=== PATIENT | female | born 1985 | race African-American/Black ===

== ENCOUNTER 2023-12-22 10:06 | Emergency (ER) | payer OTHER, SELFPAY ==
[2023-12-22 10:08] VITALS: BP 153/92
[2023-12-22 10:24] VITALS: BMI 42.1
[2023-12-22 12:55] VITALS: BP 122/78
[2023-12-22 12:59] LABS: Urine Albumin Negative (Neg - Trace); Urine Bilirubin Negative (Negative); Urine Character Clear (Clear); Urine Color Yellow; Urine Glucose Negative (Negative); Urine Ketone Negative (Negative); Urine Leukocyte Negative (Negative); Urine Nitrite Negative (Negative); Urine Occult Blood Negative (Negative); Urine Urobilinogen Negative (Neg - 1+)
[2023-12-22 13:03] LABS: % Basophils 0.8 % (0-2); % Eosinophils 1.2 % (0-6); % Immature Granulocytes 0.2 % (0-0.5); % Monocytes 6.4 % (1.7-9.3); % Neutrophils 59.4 % (42.2-75.2); Absolute Basophils 0.1 10^3/uL (0-0.2); Absolute Eosinophils 0.1 10^3/uL (0-0.7); Absolute Lymphocytes 1.9 10^3/uL (1.2-3.4); Absolute Monocytes 0.4 10^3/uL (0.1-0.6); Absolute Neutrophils 3.6 10^3/uL (1.4-6.5); Hematocrit 34.6 % (37.0-47.0); Hemoglobin 10.6 g/dL (12.0-16.0); Mean Corp Hgb Conc. 30.6 g/dL (33.0-37.0); Mean Corpuscular Hgb 18.6 pg (27.0-31.0); Mean Corpuscular Volume 60.8 fL (81.0-99.0); Mean Platelet Volume 9.6 fL (7.4-10.4); Nucleated Red Blood Cells % 0 %; Platelet Count 420 10^3/uL (130-400); Red Blood Cell Count 5.69 10^6/uL (4.20-5.40); Red Cell Dist. Width 19.8 % (11.5-14.5); White Blood Cell Count 6.1 10^3/uL (4.8-10.8)
[2023-12-22 13:09] LABS: HCG, Serum Qualitative Screen Negative
[2023-12-22 13:18] LABS: ALT (SGPT) 17 U/L (0-35); AST (SGOT) 26 U/L (14-36); Albumin 4.4 g/dl (3.5-5.0); Alkaline Phosphatase 86 U/L (38-126); Blood Urea Nitrogen 8 mg/dl (7-17); Calcium 9.5 mg/dl (8.4-10.2); Carbon Dioxide 26 mmol/L (22-30); Chloride 106 mmol/L (98-107); Estimated Creatinine Clearance > 125 ml/min; Glucose 82 mg/dl (70-99); Potassium 4.1 mmol/L (3.5-5.1); Sodium 139 mmol/L (135-145); Total Bilirubin 0.4 mg/dl (0.2-1.3); Total Protein 7.5 g/dl (6.3-8.2); eGFR > 60.00
--- NOTE | 2023-12-22 13:35 | ED.GENMED ---
History of Present Illness
General
Chief Complaint: Anxiety
Source: patient
Exam Limitations: none
Time Seen by Provider: 12/22/23 10:22
Nursing documentation reviewed up to this point in time: agreed with
Travel History
Have you had any contact with someone who has COVID-19?: No
Do you have any symptoms of coronavirus? Fever > 100 degrees, chills, cough, shortness of breath, sore throat, loss of taste or smell, muscle aches, or headache?: No
History of Present Illness
History of Present Illness:
38 yo F with ho anxiety/depression, pre diabetic
here with 2 weeks of vague symptoms 'doesn't feel right', dry mouth despite oral hydration, aniety, poor appetite
she had f/u with her psychatrits yesterday, no change to her meds (seroquel)
psychiatrist wasn't vincent eif it was anxiety or something else
pt has not had any fever, chills, sore throat, vomiting, chest pain, shortness of breath
She says sometimes when she swallows that she has to concentrate on swallowing because it seems like it is difficult. But she does not regurgitate and she does not have trouble eating her food and does not have to cut it smaller. She has no
problems with her voice. She is not having any neck swelling. Patient did notice about 6 months ago that she has a lump in her upper abdomen deep underneath the tissues. There is no skin changes there. She has previously had abdominal wall
abscess couple years ago that was I indeed. She was not sure what this upper abdominal lump is. Patient says it does not hurt at all. She does have a family doctor but has not called the doctor for follow-up regarding all the symptoms. She just
decided it was time to get checked out she is not suicidal
Past History
Past History
ED Past Medical History: Psychiatric (a/d) and Other (Borderline diabetes, overweight, iron deficiency anemia)
ED Past Surgical History: None
Social History
Tobacco: Smoker
Alcohol: Former
Drug: None
Personal: Single
Living: alone
Employment: Employed
Review of Systems
Review of Systems
Allergies reviewed?: Yes
All Other Systems: Not applicable
Phy Exam
Physical Exam
Physical Exam:
GENERAL: Alert , in no apparent distress, does not appear anxious
EYE: pupils equal and reactive
NECK: Supple, no thyromegaly appreciated
ENT: o/p clr, mmm. Normal posterior pharynx, normal phonation, tolerating secretions,
CARDIAC: Regular rate and rhythm .
LUNGS: Clear breath sounds bilaterally, no acute respiratory distress, no wheezes/rales/rhonchi
ABDOMEN: Soft, without focal tenderness, no r/g, no cvat, normal bowel sounds
Upper abdominal area above her umbilicus there is a palpable deep lump which is nontender in the midline approximately 4 x 3 cm, there is no skin changes
NEUROLOGICAL: Alert and oriented, no focal neuro deficits
SKIN: Warm and dry, skin intact.
MUSCULOSKELETAL: No edema, well perfused. neg priscilla's sign
PSYCH: Normal and appropriate interaction.
Course
Orders/Labs/Results
Orders:
Orders
12/22/23 11:39
Test Result ONCE
US Abdomen Complete/Upper Urgent
Comment:
Reason For Exam: upper abd lump, poor appetite
12/22/23 12:49
Complete Blood Count/With Diff Urgent
Comprehensive Metabolic Panel Urgent
HCG, Serum Qualitative Screen Urgent
TSH Reflex To Free T4 Urgent
Urinalysis Reflex To Culture Urgent
Date Specimen was Collected: 12/22/23
Time Specimen was Collected: 12:23
12/22/23 13:45
CT Abd/Pel (IV only)-DH only Urgent
Comment:
Reason For Exam: upper abdominal wall mass, fatigue, lack of appeti
Abnormal Lab Results
12/22/23
12:49
RBC 5.69 H 10^6/uL
(4.20-5.40)
Hgb 10.6 L g/dL
(12.0-16.0)
Hct 34.6 L %
(37.0-47.0)
MCV 60.8 L fL
(81.0-99.0)
MCH 18.6 L pg
(27.0-31.0)
MCHC 30.6 L g/dL
(33.0-37.0)
RDW 19.8 H %
(11.5-14.5)
Plt Count 420 H 10^3/uL
(130-400)
12/22/23 12:49
12/22/23 12:49
Vital Signs
Initial and Last Documented VS:
Initial Vital Signs
Temp Pulse Resp BP Pulse Ox
98.8 F 96 16 153/92 98
12/22/23 10:08 12/22/23 10:08 12/22/23 10:08 12/22/23 10:08 12/22/23 10:08
Last Documented Vital Signs
Temp Pulse Resp BP Pulse Ox
98.8 F 60 16 113/72 100
12/22/23 10:08 12/22/23 15:40 12/22/23 15:40 12/22/23 15:40 12/22/23 15:40
MDM/Problems Addressed
Differential Diagnosis Includes:
Anxiety,diabetes, thyroid issues, infection, uti,
MDM/Problems Addressed:
38 y/o F
h/o anxiety/dpression
here with 2 weeks of some vague symptmos
mild fatigue, lack of appetite, anxiety, dry mouth, urinating a ot
has been told she is prediabtic
also incidentally noticed that she had a lump which is nonpainful in the upper abdomen for the last 6 months. She did not talk to her doctor about it. She is not sure if it is related. Patient has not had any change to her psychiatric
medications. She is had a consultation with her psychiatrist who was not sure if any of the symptoms were related to her anxiety but thought she should get evaluated for any medical concerns. On exam the patient does have a palpable nontender
large upper abdominal mass which seems to be deeper than just the subcutaneous tissue without any overlying skin changes. Otherwise her exam is unremarkable. Her blood work showed she was mildly anemic with a hemoglobin of 10 but otherwise her
chemistry was normal thyroid normal urine negative hCG negative. I did an ultrasound of her upper abdominal area and it did reveal 13 x 6 cm mass which could be a lipoma versus something else. I discussed case with ED attending recommended we do a
CT scan with IV contrast. The mass was not identified on the CT scan which is reassuring. Patient was encouraged to further follow-up with her family doctor as an MRI would be more sensitive to differentiate this but there does not look to be any
emergent concerns. DC home
*Critical Care Note
Total Time (30-74mins, 75-104mins- exclusive of procedures): Not Applicable
ED Attending Note
-
Portions of this chart may have been created with voice recognition software.� Occasional wrong word or��sound alike� substitutions may have occurred due to the inherent limitations of voice recognition software.
Discharge Plan
Departure
Patient Disposition: Home (Routine Discharge)
Date of Disposition: 12/22/23
Time of Disposition: 15:28
Patient with high blood pressure during this ER visit?: No
Condition: Fair
Covid-19: Not Applicable
Discharge Problem:
Anxiety
Instructions: Anxiety, Adult (DC)
Prescriptions:
No Action
clindamycin HCl 300 mg capsule
300 mg PO TID Qty: 30 0RF
Referrals:
David Rogel MD [Family Provider] - Follow up in 2-3 days
Activity Restrictions/Additional Instructions:
You are not sure the cause of your symptoms. You were mildly anemic but otherwise there were no otherwise concerning lab abnormalities. Your ultrasound did show what looked to be an abnormal mass in measuring 13 x 6 cm in your abdominal area. A
CAT scan did not differentiate this any further, it could be a lipoma which is a benign fatty tumor. You should follow-up with your family doctor. They may end up ordering an MRI just for completeness sake. Follow-up with your psychiatrist for
other symptoms. Return as needed
Interventions
Interventions:
*Risk Screen - Suicide Last Done: 12/22/23 10:08
*General Assessment Last Done: 12/22/23 10:08
*Neglect/Abuse Screening Last Done: 12/22/23 10:08
ED- Fall Risk Assessment Last Done: 12/22/23 10:27
*ED COVID-19 Vaccine History Last Done: 12/22/23 10:25
*Nursing Disposition Last Done: 12/22/23 15:40
ED-Psychological Assessment Last Done: 12/22/23 10:25
Discharge Date and Time
Discharge Date/Time: 12/22/23 15:41
[2023-12-22 13:47] LABS: TSH Reflex To Free T4 1.17 uIU/ml (0.47-4.68)
[2023-12-22 15:30] VITALS: BP 113/72
--- NOTE | 2023-12-22 15:39 | EDRN ---
Reviewed discharge instructions with patient. Verbalized understanding. Ambulated with steady gait to the lobby.
[2023-12-22 15:40] VITALS: BP 113/72
== END 2023-12-22 15:41 | disposition home or self-care (01) ==
LOC: EMR 10:06
PROVIDERS: Physician Assistant; EMERGENCY PHYSICIAN Student in an Organized Health Care Education/Training Program; FAMILY PHYSICIAN Internal Medicine
DX: F41.9 Anxiety disorder, unspecified (principal); F32.A Depression, unspecified; R73.03 Prediabetes; R63.0 Anorexia; R68.2 Dry mouth, unspecified; R19.00 Intra-abdominal and pelvic swelling, mass and lump, unspecified site; D50.9 Iron deficiency anemia, unspecified; F17.200 Nicotine dependence, unspecified, uncomplicated; Z91.013 Allergy to seafood
CPT/HCPCS: 99285; 74177; 76700; 80053; 81003; 84443; 84703; 85025; Q9967

== ENCOUNTER 2025-05-20 09:49 | Emergency (ER) | payer OTHER, SELFPAY ==
[2025-05-20 10:05] VITALS: BP 149/82
[2025-05-20 10:17] LABS: Hematocrit 34.3 % (37.0-47.0); Hemoglobin 10.6 g/dL (12.0-16.0); Mean Corp Hgb Conc. 30.9 g/dL (33.0-37.0); Mean Corpuscular Volume 62.8 fL (81.0-99.0); Nucleated Red Blood Cells % 0 %; Platelet Count 348 10^3/uL (130-400); Red Cell Dist. Width 20.3 % (11.5-14.5)
[2025-05-20 10:29] LABS: HCG, Serum Qualitative Screen Negative
[2025-05-20 10:41] LABS: ALT (SGPT) 21 U/L (0-35); AST (SGOT) 22 U/L (14-36); Albumin 4.5 g/dl (3.5-5.0); Alkaline Phosphatase 71 U/L (38-126); Blood Urea Nitrogen 7 mg/dl (7-17); Calcium 9.7 mg/dl (8.4-10.2); Carbon Dioxide 23 mmol/L (22-30); Chloride 108 mmol/L (98-107); Glucose 141 mg/dl (70-99); Lipase 69 U/L (23-300); Potassium 4.2 mmol/L (3.5-5.1); Sodium 139 mmol/L (135-145); Total Protein 7.6 g/dl (6.3-8.2); eGFR > 60.00
[2025-05-20 11:48] VITALS: BMI 42.8
--- NOTE | 2025-05-20 12:08 | ED.GENMED ---
History of Present Illness
<Samuel Ortiz MD, Resident - Last Filed: 05/20/25 12:40>
General
Chief Complaint: Abdominal Symptoms
Source: patient
Exam Limitations: none
Time Seen by Provider: 05/20/25 11:18
History of Present Illness
History of Present Illness:
This is a 40-year-old female with known past medical history of anxiety/depression on multiple medications including Zoloft, Ativan, Seroquel and recently prescribed but not started Wellbutrin presenting to the emergency department with complaints
of not feeling well. She states that when she woke up yesterday she was not feeling well could not pinpoint to single sign or symptom, she decided to go to work however she had to leave early she came home and rested. She was able to sleep last
night she went to work today however she left the work early again because she was not feeling well. Denies fever or chills, denies headache, denies abdominal pain, denies cough denies trouble breathing, denies numbness or tingling denies any
nausea or vomiting. Mother inquiring her bowel habits she informed me that usually she goes every day however her last bowel movement was on Monday and she is very constipated but denies any vomiting or abdominal symptoms.
Past History
<Samuel Ortiz MD, Resident - Last Filed: 05/20/25 12:40>
Past History
ED Past Medical History: Psychiatric (a/d) and Other (Borderline diabetes, overweight, iron deficiency anemia)
ED Past Surgical History: None
Patient has exhibited threatening behavior?: No
Social History
Tobacco: Smoker (PPD since she was 20)
Alcohol: Former
Drug: None
Personal: Partner
Living: with family
Employment: Employed
Family History
Family History: Other (Noncontributory)
Review of Systems
<Samuel Ortiz MD, Resident - Last Filed: 05/20/25 12:40>
Review of Systems
Constitutional: Denies fever, fatigue or chills
EENT: Denies sore throat or runny nose
Respiratory: Denies cough or trouble breathing
Cardiac: Denies chest pain or palpitations
ABD/GI: Reports constipated; Denies abdominal pain, nausea or vomiting
: Denies dysuria or frequency
Musculoskeletal: Denies joint pain or joint swelling
Skin: Denies itching
Neurological: Denies dizzy or weakness
Hematologic/Lymphatic: Denies bleeding
Psychiatric: Reports depression and anxiety; Denies suicidal or hallucinations
Phy Exam
<Samuel Ortiz MD, Resident - Last Filed: 05/20/25 12:40>
General Physical Exam
General Presentation: no apparent distress
General age: appears stated age
General Skin: warm
General Habitus: normal
General Mental: alert
General Hydration: appears well hydrated
Cardiovascular Exam
Cardiovascular Exam: regular rate/rhythm and no murmur
Pulmonary Exam
Pulmonary Exam: lungs clear, no crackles and no cough
Gastrointestinal Exam
Gastrointestinal Exam: normal bowel sounds, non tender, soft, no pulsatile mass and non distended
Neurological Exam
Neurological Exam: alert, oriented x3, no motor deficits and no sensory deficits
Musculoskeletal Exam
Musculoskeletal Exam: full ROM
Course
<Samuel Ortiz MD, Resident - Last Filed: 05/20/25 12:40>
Orders/Labs/Results
Orders:
Orders
05/20/25 10:08
Test Result ONCE
Abdominal Series [CR Obstruct Series W/pa Chest] Urgent
Comment:
Reason For Exam: constipation since monday
05/20/25 10:12
Complete Blood Count/With Diff Urgent
Comprehensive Metabolic Panel Urgent
Ferritin Urgent
Comment: ADD ON
HCG, Serum Qualitative Screen Urgent
Iron Urgent
Comment: ADD ON
Lipase Urgent
Lyme Progressive Urgent
Comment: ADD ON
Monotest Urgent
Comment: ADD ON
TSH Reflex To Free T4 Urgent
Comment: ADD ON
Total Iron Binding Urgent
Comment: ADD ON
05/20/25 11:35
Add On- LAB Urgent
Tests Added?: iron, ferritin, TIBC
05/20/25 12:14
Add On- LAB Urgent
Tests Added?: TSH, to reflex Free T4, monospot, lyme progressive
Abnormal Lab Results
05/20/25
10:12
RBC 5.46 H 10^6/uL
(4.20-5.40)
Hgb 10.6 L g/dL
(12.0-16.0)
Hct 34.3 L %
(37.0-47.0)
MCV 62.8 L fL
(81.0-99.0)
MCH 19.4 L pg
(27.0-31.0)
MCHC 30.9 L g/dL
(33.0-37.0)
RDW 20.3 H %
(11.5-14.5)
Chloride 108 H mmol/L
(98-107)
Glucose 141 H mg/dl
(70-99)
% Saturation 10 L %
(20-50)
05/20/25 10:12
05/20/25 10:12
Vital Signs
Initial and Last Documented VS:
Initial Vital Signs
Temp Pulse Resp BP Pulse Ox
98.2 F 86 17 149/82 99
05/20/25 10:05 05/20/25 10:05 05/20/25 10:05 05/20/25 10:05 05/20/25 10:05
Last Documented Vital Signs
Temp Pulse Resp BP Pulse Ox
98.2 F 86 17 149/82 99
05/20/25 10:05 05/20/25 10:05 05/20/25 10:05 05/20/25 10:05 05/20/25 12:15
<Jeison Foley MD - Last Filed: 05/20/25 13:27>
Orders/Labs/Results
Orders:
Orders
05/20/25 10:08
Test Result ONCE
Abdominal Series [CR Obstruct Series W/pa Chest] Urgent
Comment:
Reason For Exam: constipation since monday
05/20/25 10:12
Complete Blood Count/With Diff Urgent
Comprehensive Metabolic Panel Urgent
Ferritin Urgent
Comment: ADD ON
HCG, Serum Qualitative Screen Urgent
Iron Urgent
Comment: ADD ON
Lipase Urgent
Lyme Progressive Urgent
Comment: ADD ON
Monotest Urgent
Comment: ADD ON
TSH Reflex To Free T4 Urgent
Comment: ADD ON
Total Iron Binding Urgent
Comment: ADD ON
05/20/25 11:35
Add On- LAB Urgent
Tests Added?: iron, ferritin, TIBC
05/20/25 12:14
Add On- LAB Urgent
Tests Added?: TSH, to reflex Free T4, monospot, lyme progressive
Abnormal Lab Results
05/20/25
10:12
RBC 5.46 H 10^6/uL
(4.20-5.40)
Hgb 10.6 L g/dL
(12.0-16.0)
Hct 34.3 L %
(37.0-47.0)
MCV 62.8 L fL
(81.0-99.0)
MCH 19.4 L pg
(27.0-31.0)
MCHC 30.9 L g/dL
(33.0-37.0)
RDW 20.3 H %
(11.5-14.5)
Chloride 108 H mmol/L
(98-107)
Glucose 141 H mg/dl
(70-99)
% Saturation 10 L %
(20-50)
05/20/25 10:12
05/20/25 10:12
Vital Signs
Initial and Last Documented VS:
Initial Vital Signs
Temp Pulse Resp BP Pulse Ox
98.2 F 86 17 149/82 99
05/20/25 10:05 05/20/25 10:05/20/25 10:05/20/25 10:05/20/25 10:05
Last Documented Vital Signs
Temp Pulse Resp BP Pulse Ox
98.2 F 86 17 149/82 99
05/20/25 10:05 05/20/25 10:05 05/20/25 10:05 05/20/25 10:05 05/20/25 12:15
<Samuel Ortiz MD, Resident - Last Filed: 05/20/25 12:40>
MDM/Problems Addressed
Differential Diagnosis Includes:
Iron def anemia vs thyroid disease vs mono vs lyme
MDM/Problems Addressed:
CBC with hemoglobin of 10.6 and MCV of 62.8. Points towards microcytic anemia likely iron deficiency.
CMP benign with mild elevated blood glucose. Lipase within normal limits. hCG negative.
Iron studies with normal total iron and total iron-binding capacity. Percentage saturation on the lower side 10.
Chest abdominal x-ray without any perforation or bowel dilation
Recommended to utilize miralax daily, keep hydrated, rest eat healthy diet.
will call the patient with results if anything abnormal in labs. Lyme, mono, TSH pending at the time of discharge.
Shared decision with the patient for discharge and follow-up with family doctor. Advised to return to the emergency room if you develop any new or worsening of the current symptoms. She voices understanding and agree with the plan. Work note has
been provided to the patient and her partner.
<Samuel Ortiz MD, Resident - Last Filed: 05/20/25 12:40>
*Pulse Oximetry
SaO2: 99
Oxygen Mode of Delivery: Room air
Patient hypoxic: no
*Critical Care Note
Total Time (30-74mins, 75-104mins- exclusive of procedures): Not Applicable
ED Attending Note
<Samuel Ortiz MD, Resident - Last Filed: 05/20/25 12:40>
-
Portions of this chart may have been created with voice recognition software.� Occasional wrong word or��sound alike� substitutions may have occurred due to the inherent limitations of voice recognition software.
<Jeison Foley MD - Last Filed: 05/20/25 13:27>
ED Attending Note
Patient seen and examined by attending physician: Yes
ED Attending Note:
Patient with history of anxiety disorder and depression, presents to ED secondary to intermittent episodes of fatigue and generalized weakness over the past 2 days. Patient went to work yesterday with aforementioned symptoms but had to leave work
early due to her symptoms. Today, as well, patient experienced continual symptoms at work, causing her to leave for an evaluation. Denies fever or chills. Denies coughing. Denies sore throat. Denies headache. Denies neck pain. Denies nausea,
vomiting, or diarrhea. Denies rash. Denies recent travel. Denies recent illness. Denies recent change in medications or diet. Denies sick contact. Patient is concerned that she may be experiencing symptoms secondary to low iron level or
dehydration.
Physical Exam
General: no apparent distress, not acutely ill. afebrile.
Head: nc/at. eomi
Neck: supple. no meningeal signs
Heart: s1/s2 regular rate and rhythm
Lungs: no acute respiratory distress. clear bilaterally
Abdomen: normal bowel sounds. not tender.
Neuro: alert and oriented x 3. no focal neurological deficits
Skin: no rash
Psychiatric: well kept. interactive and cooperative
Patient with an unremarkable workup in ED, including blood work and x-ray. Patient otherwise remains afebrile, hemodynamically stable, and without any gross evidence of dehydration.
Lyme titer, Monospot, TSH, iron studies pending at discharge. Patient advised to follow-up with PCP for reevaluation. Advised dietary modification, increased fluid intake, along with stool softener/laxative.
Discharge Plan
Departure
Patient Disposition: Home (Routine Discharge)
Date of Disposition: 05/20/25
Time of Disposition: 12:32
Patient with high blood pressure during this ER visit?: Yes
Condition: Good
Discharge Problem:
Anemia
Instructions: Anemia in adults, possibly from low iron - ED discharge instructions
Prescriptions:
No Action
clindamycin HCl 300 mg capsule
300 mg PO TID Qty: 30 0RF
Referrals:
Kellie Guillaume CRNP [Family Provider] - Follow up in 1 week
Stand Alone Forms: Return to Work
Activity Restrictions/Additional Instructions:
You were seen in the [facility] the emergency department with concerns of not feeling well. During your stay you had blood work including complete blood count which shows hemoglobin of 10.6 and MCV of 62.8. Complete
metabolic panel which shows blood glucose of 141 otherwise benign. Panel shows total iron and total iron binding capacity within normal limits. Iron saturation slightly low. Recommend use of [id number] iron tablets. Lipase was normal hCG
was negative.
Chest/abdominal x-ray without any dilated bowels or perforation. We advise you to use [id number] MiraLAX daily, maintain hydration and eat healthy diet. Work note has been provided with discharge along with further instructions.
At the time of the discharge TSH, Lyme and mono screen was pending. We will call you if there is any abnormal results.
Interventions
Interventions:
*Risk Screen - Suicide Last Done: 05/20/25 10:07
*General Assessment Last Done: 05/20/25 10:07
*Neglect/Abuse Screening Last Done: 05/20/25 10:07
*ED COVID-19 Vaccine History Last Done: 05/20/25 10:07
HY-[id number]-[id number] Assessment Last Done: 05/20/25 11:49
Discharge Date and Time
Print Language: POLISH
[2025-05-20 12:22] LABS: Iron 45 ug/dl (37-170)
[2025-05-20 12:32] LABS: Total Iron Binding Capacity 435 ug/dl (265-497)
[2025-05-20 12:50] LABS: Ferritin 9.7 ng/ml (6.24-137)
[2025-05-22 14:14] LABS: Lyme Antibody Screen, EIA Negative (Negative)
== END 2025-05-20 12:40 | disposition home or self-care (01) ==
LOC: EMR 09:49
PROVIDERS: EMERGENCY PHYSICIAN Emergency Medicine; FAMILY PHYSICIAN Nurse Practitioner Family
DX: D50.9 Iron deficiency anemia, unspecified (principal); F41.9 Anxiety disorder, unspecified; F17.210 Nicotine dependence, cigarettes, uncomplicated
CPT/HCPCS: 99283; 74022; 80053; 82728; 83540; 83550; 83690; 84443; 84703; 85025; 86308; 86618